=== PATIENT | male | born 1935 | race Caucasian/White ===

== ENCOUNTER 2017-12-26 01:22 | Inpatient (IN) | payer MEDICARE, OTHER ==
[~2017-12-26] VITALS: Ht 157.5 cm; Wt 65.8 kg
[2017-12-26] VITALS (14 sets, daily range): BP systolic 106–159; BP diastolic 44–78
[~2017-12-26 01:22] MED LIST: ACET500T68 PO; ADV250/50 INH; BIS5 PR; BRAIN BOOSTER PO; BUDE10.2 INH; CALC600T63 PO; DOCO100C2 PO; ENO40I SQ; FERR-63 PO; FES4PT PO; GLUC-232 PO; HYDR-3083 PO; IRON18TA2 PO; LANS15CA54 PO; LOR7.5/325 PO; MAGN500C10 PO; MELO-207 PO; METAMUCIL; MOM PO; MULT-27 PO; OMEP-153 PO; OXYC10TA67 PO; VIT1CAPS34 PO; [UNRECOGNIZED DRUG - OTHER] PO
[2017-12-26] MEDS ORDERED: fentaNYL CITR 100 MCG/2 ML AMP ONE (07:38)
[2017-12-26] MEDS ORDERED: DEXAMETHASONE SOD 4 MG/ML VIAL ONE (07:39)
[2017-12-26] MEDS ORDERED: ONDANSETRON 4 MG/2 ML VIAL ONE (07:39)
[2017-12-26] MEDS ORDERED: PROPOFOL EMUL(*) 10MG/ML 20 ML 20 ML ONE (07:39)
[2017-12-26] MEDS ORDERED: LIDOCAINE MPF 1% 5 ML VIAL ONE (07:39)
[2017-12-26] MEDS ORDERED: EPINEPHrine HCL 1 MG/ML AMP ONE (07:42)
[2017-12-26] MEDS ORDERED: ROPIVACAINE 0.2% 20 ML VIAL ONE (07:44)
[2017-12-26] MEDS ORDERED: ROPIVACAINE 0.5% 20 ML VIAL ONE (07:44)
[2017-12-26] MEDS ORDERED: NS 0.9% 20 ML SDV 20 ML ONE (08:16)
[2017-12-26] MEDS: ROPIVACAINE 0.2% 400 MG/200ML 250 ML CONINFUS ONE ×2 (08:55→13:05)
[2017-12-26] MEDS ORDERED: ROCURONIUM BROM 10 MG/ML 5 ML ONE (10:15)
[2017-12-26] MEDS ORDERED: KETAMINE HCL 200 MG/20 ML MDV ONE (10:37)
[2017-12-26] MEDS ORDERED: CELECOXIB 200 MG CAP PO ONE (10:40)
[2017-12-26] MEDS ORDERED: ceFAZolin(*) 1 GM VIAL 1 GM in NS(*) 0.9% 100 ML ADDVANT BAG 100 ML IVPB ONE (10:40)
[2017-12-26] MEDS ORDERED: ACETAMINOPHEN 500 MG TAB PO ONE (10:40)
[2017-12-26] MEDS ORDERED: NORMOSOL R SOLN(*) 1000 ML BAG 1,000 ML IV PRN (10:40)
[2017-12-26] MEDS ORDERED: MIDAZOLAM 2 MG/2 ML VIAL IVP PRN (10:40)
[2017-12-26] MEDS ORDERED: LIDOCAINE/SOD BICARB 8.4% SYR ID ONE (10:40)
[2017-12-26] MEDS ORDERED: PREGABALIN 75 MG CAPSULE PO ONE (10:40)
[2017-12-26] MEDS ORDERED: ePHEDrine 25 MG/5 ML DISP.SYR IVP ONE (10:55)
[2017-12-26] MEDS ORDERED: diphenhydrAMINE 25 MG CAP PO PRN (13:35)
[2017-12-26] MEDS ORDERED: KCL/D5LR 20 MEQ/1000 ML PREMIX 1,000 ML IV PRN (13:35)
[2017-12-26] MEDS ORDERED: MORPHINE SULFATE 30 MG PCA IV PRN (13:35)
[2017-12-26] MEDS ORDERED: MAGNESIUM HYDROXIDE* 30ML UDCP PO PRN (13:35)
[2017-12-26] MEDS ORDERED: PROMETHAZINE 25 MG/ML 1 ML AMP IVP PRN (13:35)
[2017-12-26] MEDS ORDERED: NALOXONE HCL 0.4 MG/ML VIAL IVP PRN (13:35)
[2017-12-26] MEDS ORDERED: KETOROLAC 30 MG/ML VIAL IVP PRN (13:35)
[2017-12-26] MEDS ORDERED: ACETAMINOPHEN 500 MG TAB PO PRN (13:35)
[2017-12-26] MEDS ORDERED: ONDANSETRON 4 MG/2 ML VIAL IVP PRN (13:35)
[2017-12-26] MEDS ORDERED: MAGNESIUM CITRATE 300 ML BTL PO PRN (13:35)
[2017-12-26] MEDS ORDERED: BISACODYL 10 MG SUPP PR PRN (13:35)
[2017-12-26] MEDS ORDERED: FLUSH 10 ML SYR IVP PRN (13:35)
[2017-12-26] MEDS ORDERED: FERR240T23 PO (14:42)
[2017-12-26] MEDS ORDERED: FLUT16SP19 NS (14:43)
--- NOTE | 2017-12-26 14:48 | RADIOLOGY IMAGING REPORT ---
FACILITY: [facility] - [place] PATIENT NAME: Terrance Dee : 1935 MR: [id number] V: [id number] EXAM DATE: ORDERING PHYSICIAN: SHEREEN ROJAS TECHNOLOGIST: Location: [facility] Patient: Terrance Dee : 1935 Visit/Account:[id number] Date of Sevice: 12/26/2017 Exam type: C-ARM FLUORO 1 HR History: ANKLE REPLACEMENT Comparison: None. Findings: 13 portable intraoperative C-arm spot views of the ankle are submitted demonstrating ankle replacemen t. There are no right or left markers on any of the images. The paperwork does not discuss laterali ty. The total continuous fluoroscopy dose was 0.64370 mGray per meter squared. The fluoroscopy time was 226.5 seconds IMPRESSION: 1. As above Report Dictated By: Niya Kern MD at 12/26/2017 2:40 PM Report E-Signed By: Niya Kern MD at 12/26/2017 2:43 PM WSN:[email or web address]
--- NOTE | 2017-12-26 15:33 | Hospitalist Consultation ---
History of Present Illness Requesting Physician Dr. Gomes Reason for Consult Medication Management Chief Complaint s/p left ankle replacement History of Present Illness He was admitted s/p left ankle replacement. It is reported the surgery went well and without complication. History Problems: (1) COPD (chronic obstructive pulmonary disease) Status: Chronic (2) GERD (gastroesophageal reflux disease) Status: Chronic (3) BPH (benign prostatic hyperplasia) Status: Chronic Home Meds Reported Medications Fluticasone Prop 50 Mcg Ns (FLONASE 50 MCG NS) 16 Gm [place].susp, 1 SPRAY NS QDAY , BOT 12/26/17 Ferrous Gluconate (IRON) 240 Mg Tablet, 240 MG PO QHS 12/26/17 [Superbetaprostate] No Conflict Check, 1 CAP PO BID 12/21/17 [Brain Booster] No Conflict Check, 2 CAP PO BID 12/21/17 Acetaminophen (TYLENOL EXTRA STRENGTH) 500 Mg Tablet, 1000 MG PO BID, TAB 12/21/17 Meloxicam (MELOXICAM) 15 Mg Tablet, 15 MG PO QDAY 12/21/17 Mu-Vits-Min Th/Lycopene/Lutein (CENTRUM SILVER TABLET) 1 Each Tablet, 1 EACH PO QDAY 10/24/17 Gluc 2KCL/Chondr/Arlen Hy/Hy Ac (GLUCOSAMINE & CHONDROITIN CAP) 1 Each Capsule, 1 EACH PO QDAY, CAPSULE 10/24/17 Magnesium Oxide (MAGNESIUM) 500 Mg Capsule, 500 MG PO BID, CAPSULE 10/24/17 Docosahexanoic Acid (DHA) 100 Mg Capsule, 100 MG PO BID, CAPSULE 10/24/17 Vit A/Vit C/Vit E/Zinc/Copper (PRESERVISION AREDS SOFTGEL) 1 Each Capsule, 1 EACH PO BID, CAPSULE 10/24/17 Calcium Carbonate (CALCIUM) 600 Mg Tablet, 600 MG PO QDAY 10/24/17 Budesonide/Formoterol Fumarate (SYMBICORT 160-4.5 MCG INHALER) 10.2 Gm Inh, 10.2 GM INH BID, INH 10/24/17 Omeprazole (Omeprazole) 20 Mg Tablet.dr, 20 MG PO QODAY, 0 Refills 08/02/10 Discontinued Reported Medications Iron (IRON) 18 Mg Tablet, 27 MG PO QDAY 10/24/17 Fesoterodine Fumarate (TOVIAZ) 4 Mg Tabsr, 4 MG PO QODAY 10/24/17 Lansoprazole (PREVACID) 15 Mg Capsule.dr 15 MG PO QDAY 10/24/17 Allergies: Coded Allergies: No Known Drug Allergies (Verified , 12/21/17) Patient History: FH: Parkinson's disease FATHER FH: macular degeneration MOTHER Hx Smoking: Yes (1 PPD 40+ YEARS ) Smoking Status: Former Smoker When Quit Tobacco?: 1999 Caffeine Intake: Coffee, Soda Caffeine/Cups Per Day: 4 A DAY Hx Alcohol Use: Yes (VERY RARE) Hx Substance Use Disorder: No History of IV Drug Use: No Review of Systems All Systems Reviewed/Normal: Yes, Except as Noted Exam Vital Signs Vital Signs Date Time Temp Pulse Resp B/P (MAP) Pulse Ox O2 Delivery O2 Flow Rate FiO2 12/26/17 15:00 52 12 111/65 (80) 96 Nasal Cannula 2.0 12/26/17 14:26 97.1 General Appearance: Alert, Awake, No Acute Distress, Afebrile Neuro: No Gross deficits Cardiovascular: Regular Rate and Rhythm Respiratory: No Respiratory Distress, Clear to Auscultation GI: Abd Soft and Non-Tender Extremities: No Edema Psych: Alert & Oriented X3, Appropriate Mood & Affect Assessment and Plan Problems: (1) Status post left ankle joint replacement Status: Acute Assessment & Plan: Followed by Dr. Gomes (2) COPD (chronic obstructive pulmonary disease) Status: Chronic Assessment & Plan: He is on chronic treatment with Symbicort. (3) GERD (gastroesophageal reflux disease) Status: Chronic Assessment & Plan: He is on chronic treatment with Omeprazole. He will be placed on Protonix during admission. Venous Thromboembolism Antithrombotics Is Pt On Any Antithrombotics?: No Exam Sepsis Risk: No Definite Risk LISETH ESTRADA SPLINE ROLLING MACHINE JOB SETTER December 26, 2017 15:33
[2017-12-26] MEDS: ceFAZolin(*) 1 GM VIAL 1 GM in NS(*) 0.9% 100 ML ADDVANT BAG 100 ML IVPB SCH (16:16)
[2017-12-26] MEDS: BUDESO/FORMOT 160/4.5 MCG 6 GM INH SCH (18:29)
[2017-12-27] VITALS (7 sets, daily range): BP systolic 109–137; BP diastolic 46–75; Ht 157.5 cm; Wt 65.8 kg
[2017-12-27] MEDS: ceFAZolin(*) 1 GM VIAL 1 GM in NS(*) 0.9% 100 ML ADDVANT BAG 100 ML IVPB SCH ×2 (01:05→08:17)
[2017-12-27] MEDS: BUDESO/FORMOT 160/4.5 MCG 6 GM INH SCH ×2 (05:27→16:56)
[2017-12-27] MEDS: FLUTICASONE PROP 0.05% 16 GM SCH (08:16)
--- NOTE | 2017-12-27 10:39 | Hospitalist Progress Note ---
Subjective Progress Notes Subjective He has no concerns this morning. Patient Complains of: Cardiovascular: No: Chest Pain Respiratory: No: Shortness of Breath Physical Exam Vital Signs Date Time Temp Pulse Resp B/P (MAP) Pulse Ox O2 Delivery O2 Flow Rate FiO2 12/27/17 09:57 93 12/27/17 08:05 Room Air 12/27/17 07:54 98.5 55 16 127/58 (81) 2.0 Intake and Output 12/28/17 07:00 Intake Total 710 ml Output Total 400 ml Balance 310 ml Intake Oral 710 ml Output Urine Total 400 ml # Voids 1 # Bowel Movements 1 General Appearance: Alert, Awake, No Acute Distress, Afebrile Neuro: No Gross deficits Cardiovascular: Regular Rate and Rhythm Respiratory: No Respiratory Distress, Clear to Auscultation GI: Soft and Non-Tender Psych: Alert & Oriented X3, Appropriate Mood & Affect Assessment and Plan Problems: (1) Status post left ankle joint replacement Status: Acute Assessment & Plan: Followed by Dr. Gomes (2) COPD (chronic obstructive pulmonary disease) Status: Chronic Assessment & Plan: He is on chronic treatment with Symbicort. (3) GERD (gastroesophageal reflux disease) Status: Chronic Assessment & Plan: He is on chronic treatment with Omeprazole. He will be placed on Protonix during admission. Exam Sepsis Risk: No Definite Risk LISETH ESTRADA SR. [employer]IA & MOBILE MANAGER December 27, 2017 10:39
[2017-12-27] MEDS: DOCUSATE SODIUM 100 MG CAP PO SCH ×2 (10:52→20:49)
[2017-12-28 04:48] VITALS: BP 114/60
[2017-12-28] MEDS: BUDESO/FORMOT 160/4.5 MCG 6 GM INH SCH (05:20)
[2017-12-28 07:20] VITALS: BP 142/60
[2017-12-28] MEDS ORDERED: PANTOPRAZOLE SOD 40 MG TABEC PO SCH (09:00)
[2017-12-28] MEDS: DOCUSATE SODIUM 100 MG CAP PO SCH (09:42)
[2017-12-28] MEDS: FLUTICASONE PROP 0.05% 16 GM SCH (09:42)
--- NOTE | 2017-12-28 10:39 | Hospitalist Progress Note ---
Subjective Progress Notes Subjective He has no concerns this morning. Patient Complains of: Cardiovascular: No: Chest Pain Respiratory: No: Shortness of Breath Physical Exam Vital Signs Date Time Temp Pulse Resp B/P (MAP) Pulse Ox O2 Delivery O2 Flow Rate FiO2 12/28/17 10:08 Room Air 12/28/17 07:20 90 12/28/17 07:20 98.3 55 16 142/60 (87) Intake and Output 12/29/17 01:00 Intake Total 400 ml Output Total 950 ml Balance -550 ml Intake Oral 400 ml Output Urine Total 950 ml # Voids 3 # Bowel Movements 1 General Appearance: Alert, Awake, No Acute Distress, Afebrile Neuro: No Gross deficits Cardiovascular: Regular Rate and Rhythm Respiratory: No Respiratory Distress, Clear to Auscultation GI: Soft and Non-Tender Psych: Alert & Oriented X3, Appropriate Mood & Affect Assessment and Plan Problems: (1) Status post left ankle joint replacement Status: Acute Assessment & Plan: Followed by Dr. Gomes (2) COPD (chronic obstructive pulmonary disease) Status: Chronic Assessment & Plan: He is on chronic treatment with Symbicort. (3) GERD (gastroesophageal reflux disease) Status: Chronic Assessment & Plan: He is on chronic treatment with Omeprazole. Exam Sepsis Risk: No Definite Risk LISETH ESTRADA DIVERSIFIED CROPS FARMWORKER December 28, 2017 10:39
[2017-12-28] MEDS ORDERED: oxyCODONE/ACETAMIN 5/325MG TH 2 TAB/BOTTLE PO ONE (11:00)
[2017-12-28] MEDS ORDERED: OXYC-865 PO (11:08)
--- NOTE | 2017-12-29 13:50 | OPERATIVE REPORT 1 ---
EVENT DATE: December 26, 2017 SURGEON: Luis Miguel Gomes MD ANESTHESIOLOGIST: Thang Escalante MD ANESTHESIA: General with popliteal block. PREOPERATIVE DIAGNOSIS Left severe ankle arthritis. POSTOPERATIVE DIAGNOSIS Left severe ankle arthritis. PROCEDURE PERFORMED Left total ankle arthroplasty. TOURNIQUET TIME Two hours 10 minutes. ESTIMATED BLOOD LOSS Less than 20 mL. DESCRIPTION OF PROCEDURE Patient brought to the operating room and placed in the supine position, had a bump placed under her left hip, and left lower extremity was prepped and draped in the normal sterile fashion using Prevail. Sterile stockinette, sterile U- drape, and sterile extremity drape placed over the lower extremities. Stockinette was incised right above the knee and held with Coban. Esmarch was then used to exsanguinate the lower extremity as the tourniquet turned up to 300 mmHg. Incision made was directly lateral to the anterior tibialis tendon. Skin incised with a 15 blade down to the subcutaneous tissue. Subcutaneous tissue was bluntly dissected down to the extensor retinaculum, which then was incised. At this point, I identified the neurovascular bundle which was pushed off laterally and bluntly dissected down to the joint. A subperiosteal dissection was done around the joint. There was a lot of synovial thickening which was resected. He had a lot of anterior osteophytes on the talus which took a significant amount of time to remove. Rongeuring removed over the anterior tibia and talus. At this point, I then took an osteotome and took the anterior distal portion of the distal tibia off to get right down to the level of the plafond. Once I was at the level of the plafond, I then placed one pin into the tibial tuberosity of the tibia. I then placed an alignment guide from the tibia down to the talus. I rested the distal end of the tibial guide on the end of the talus, brought in an osteotome, made sure that it was at the level of the tibial plafond. Then from there, I placed a medial pin into the distal portion of the alignment robina. Once that was stable, I then brought the tibial end up 9 mm and locked it in. At this point, I brought fluoroscopy in AP and lateral, made sure that we had good positioning of the distal cut which looked to be right at the distal physis as well as the angulation of the cut which seemed to be about 3 degrees, which was the 3-degree cut we had placed. I then put the distal cutting jig on, brought fluoroscopy in, checked AP and lateral, got perfect circles along the drill holes, and checked my rotation to make sure it was pointing at the second ray, as well as made sure that I was not too close to the medial malleolus, which all looked actually in good position. This was with a size 1. I then drilled both medial and lateral, placed two pins medially, again checked AP and lateral to make sure that the cut of the tibia was going to be in the right position, which it was. I then transected the distal tibia, cut without any difficulty. I then removed the distal tibial guide, finished cutting on the medial and lateral side using an osteotome, and then was able to transect about 80% of the distal tibial cut. Once that was done, then off the distal tibial cut, I was able to put my talar neck pin alignment guide, put the foot into 90 degrees. Under fluoroscopy, I actually placed the pin into the back of the talus so that it was in the appropriate position. Once that was done, we double checked to make sure that that pin was in the appropriate position. We then placed our paddles in the distal talar cut guide. Once that was done, I placed lamina spreaders into the joint to make sure the paddles were completely down, checked again on fluoroscopy to make sure the cut was going to be not too much of the talus and in a good position medial and lateral, which it was. I transected the distal talus after pinning it. I then removed the distal talar cut, removed the bone, and rongeured the lateral and medial sides of the top of the talus so it was completely flat. Then, I was able to get back at the bone that was still present in the posterior aspect of the joint. Once I was able to removed that, I then went for my anterior chamfer. We then placed the anterior chamfer guide under fluoroscopy, made sure we had it far enough back, which we did not. Therefore, I had to remove more of the anterior osteophytes of the talus, then placed it again with lamina spreaders in place. At that point, I checked under fluoroscopy to make sure that the guideline was in line or behind the anterior tibial margin, which it was. Therefore, we pinned the anterior chamfer guide. We then did the inferior chamfer and removed the guide. I had to rongeur the rest of it to get it to the appropriate level so it was clean. Once that done, we then placed the rivera and lateral chamfer cuts guide on. I used actually the distal tibial trial guide to get it in the right position, then pinned it, and removed the tibial trial guide. From here, we drilled the rivera and placed the rivera to lock in the lateral chamfer guide. Once that was done, we made the lateral chamfer cut using a reciprocating saw. There was very little to take laterally. I then removed both of those. We then placed our one trial of the tibia and the talus and found that they were in excellent position, good motion , though we had to go up to an 11 poly to get some good stability of the joint. Once we had good stability of the joint at 11 mm, we trialed it again, brought fluoroscopy in AP and lateral, and found to have excellent alignment of all cuts and placement. I then removed all the trials. We finished our cutting of the distal tibia guide fin with two drills and the reamer. We then used an osteotome and the punch to clean out the guide for the fin. We then placed our final prosthesis in using 1 tibia, 1 talus, and an 11 mm poly without any difficulty. Good range of motion from zero to at least 30 degrees of dorsiflexion and 40 degrees of plantar flexion. At this point, checked an AP and lateral, found good position on x-ray. We then closed the retinaculum using 2-0 Vicryl, closed the subcutaneous tissue using 3-0 Monocryl, and the skin was closed with lor. Adaptic, 4 x 4's, a big cast padding were then placed, and a bulky Mclaughlin splint was placed. The patient went to recovery. No complications. MARCIA
== END 2017-12-28 11:50 | DRG 469 ==
LOC: OR 01:22 → MED 14:25
PROVIDERS: ADMIT Orthopaedic Surgery; ATTEND Orthopaedic Surgery
PROC: 0SRG0JA Replacement of Left Ankle Joint with Synthetic Substitute, Uncemented, Open Approach (ICD-10-PCS; principal; 2017-12-26 10:01)
DX: M19.072 Primary osteoarthritis, left ankle and foot (principal); K21.9 Gastro-esophageal reflux disease without esophagitis; N40.0 Benign prostatic hyperplasia without lower urinary tract symptoms; Z87.891 Personal history of nicotine dependence; Z96.653 Presence of artificial knee joint, bilateral; J44.9 Chronic obstructive pulmonary disease, unspecified; E78.5 Hyperlipidemia, unspecified; I45.10 Unspecified right bundle-branch block
CPT/HCPCS: 76000; 76942; 94640; 97161; 97165; C1776; J0171; J0690; J1100; J2001; J2250; J2405; J2704; J2795; J3010; J3490; J7050